=== PATIENT | male | born 1985 | race American Indian/Alaskan Native ===

== ENCOUNTER 2018-10-06 01:19 | Emergency (ER) | payer OTHER ==
[2018-10-06 02:13] VITALS: BP 134/68
[2018-10-06] MEDS ORDERED: REGLAN IV ONE (03:00)
[2018-10-06] MEDS ORDERED: DECADRON IV ONE (03:00)
[2018-10-06] MEDS ORDERED: BENADRYL IV ONE (03:00)
[2018-10-06] MEDS ORDERED: TORADOL IV ONE (03:11)
[2018-10-06] MEDS ORDERED: TORADOL ONE (03:14)
--- NOTE | 2018-10-06 04:39 | Emergency Department Report ---
ED Headache HPI - General Chief Complaint: Headache Stated Complaint: MIGRAINE Time Seen by Provider: 10/06/18 04:33 - History of Present Illness Initial Comments: Pt presents to the ED with c/o a left frontal ANDERSON that began at 7 PM yesterday. The patient has associated congestion and mild rhinorrhea. The patient states he has seasonal allergies and whenever the pollen returns he has the same exact ANDERSON. He denies any numbness, weakness, LOC, vision changes, no N/V. The patient states that he took tylenol for the ANDERSON without much relief. Allergies/Adverse Reactions: Allergies No Known Allergies Allergy (Unverified 10/06/18 01:34) Home Medications: Ambulatory Orders Fluticasone [Flonase] 1 spray NS QDAY #1 bottle 10/06/18 Loratadine [Claritin] 10 mg PO DAILY #30 tablet 10/06/18 ED Review of Systems ROS: Stated complaint: MIGRAINE Other details as noted in HPI Comment: All other systems reviewed and negative ED Past Medical Hx - Past Medical History Previous Medical History?: No - Surgical History Past Surgical History?: No - Social History Smoking Status: Current Every Day Smoker Substance Use Type: Marijuana - Medications Home Medications: Home Medications Medication Instructions Recorded Confirmed Last Taken Type Fluticasone [Flonase] 1 spray NS QDAY #1 bottle 10/06/18 Unknown Rx Loratadine [Claritin] 10 mg PO DAILY #30 tablet 10/06/18 Unknown Rx ED Physical Exam - General Limitations: No Limitations General appearance: alert, in no apparent distress - Head Head exam: Present: atraumatic, normocephalic - Eye Eye exam: Present: normal appearance, PERRL, EOMI - ENT ENT exam: Present: mucous membranes moist, other (pale, boggy turbinates, no si nus TTP bilaterally) - Neck Neck exam: Present: normal inspection, full ROM. Absent: tenderness, meningismus - Respiratory Respiratory exam: Present: normal lung sounds bilaterally. Absent: respiratory distress, wheezes, rales, rhonchi, stridor, chest wall tenderness, accessory muscle use, decreased breath sounds, prolonged expiratory - Cardiovascular Cardiovascular Exam: Present: regular rate, normal rhythm, normal heart sounds. Absent: systolic murmur, diastolic murmur, rubs, gallop - Neurological Exam Neurological exam: Present: alert, oriented X3, CN II-XII intact, normal gait, other (normal heel to braun, strength is 5/5 in the BUE/BLE, sensation intact, equal metal container maker strength, no focal neuro deficit). Absent: motor sensory deficit - Psychiatric Psychiatric exam: Present: normal affect, normal mood - Skin Skin exam: Present: warm, dry, intact ED Course Vital Signs 10/06/18 10/06/18 01:33 02:11 Temperature 98.1 F 98.1 F Pulse Rate 56 L 56 L Respiratory 16 16 Rate Blood Pressure 134/68 134/68 O2 Sat by Pulse 98 98 Oximetry ED Medical Decision Making - Medical Decision Making Pt presents to the ED with c/o a left frontal ANDERSON that began at 7 PM yesterday. The patient has associated congestion and mild rhinorrhea. The patient states he has seasonal allergies and whenever the pollen returns he has the same exact ANDERSON. He denies any numbness, weakness, LOC, vision changes, no N/V. The patient states that he took tylenol for the ANDERSON without much relief. VSS. pt has no focal neuro deficit, pale boggy turbinates, no sinus TTP bilaterally. ANDERSON completely resolved per pt after medications. Will give pt claritin and flonase for allergies. Advised to take ibuprofen/tylenol as needed. Discussed to follow up with PCP in the next 2-3 days. Return to the ED for any new or worsening symptoms. - Differential Diagnosis sinus ANDERSON, seasonal allergies, migraines Critical care attestation.: If time is entered above; I have spent that time in minutes in the direct care of this critically ill patient, excluding procedure time. ED Disposition Clinical Impression: Seasonal allergies Headache Qualifiers: Headache type: unspecified Headache chronicity pattern: acute headache Intractability: not intractable Qualified Code(s): R51 - Headache Allergic rhinitis Qualifiers: Allergic rhinitis trigger: pollen Allergic rhinitis seasonality: seasonal Qualified Code(s): J30.1 - Allergic rhinitis due to pollen Disposition: DC-01 TO HOME OR SELFCARE Is pt being admited?: No Does the pt Need Aspirin: No Condition: Stable Instructions: Allergies (ED), Allergic Rhinitis (ED) Additional Instructions: Please follow up with a primary care doctor in the next 2-3 days. Take medication as prescribed. Use tylenol or motrin as needed. Return to the emergency room for any new or worsening symptoms as discussed. Prescriptions: Loratadine [Claritin] 10 mg PO DAILY #30 tablet Fluticasone [Flonase] 1 spray NS QDAY #1 bottle Referrals: MARIA GUADALUPE ARORA MD [Primary Care Provider] - 2-3 Days Time of Disposition: 04:40 Print Language: WELSH
== END 2018-10-06 04:45 | disposition home or self-care (01) ==
LOC: ED 01:19
DX: J30.2 Other seasonal allergic rhinitis (principal); F17.200 Nicotine dependence, unspecified, uncomplicated; F12.10 Cannabis abuse, uncomplicated
CPT/HCPCS: 96374; 96375; 99282; J1100; J1200; J1885; J2765